=== PATIENT | male | born 1985 | race Caucasian/White ===

== ENCOUNTER 2020-11-21 18:55 | Emergency (ER) | payer BC, SELFPAY ==
[2020-11-21 19:02] VITALS: BP 134/91; PULSE 70; RESP 18; TEMP 36.8; O2SAT 99
--- NOTE | 2020-11-21 19:19 | ED.EAR ---
HPI - Ear Problem General Chief complaint: Ear Stated complaint: Rt ear pain Time Seen by Provider: 11/21/20 19:02 Source: patient and RN notes reviewed Mode of arrival: ambulatory Limitations: no limitations History of Present Illness HPI Narrative: Patient presents today complaining of right ear pain x2 days. Associated symptoms include mild cough, clear drainage. Reports the ear pain is causing a headache. Currently rates his pain 6/10 and has been taking Excedrin with mild relief. Denies any recent swimming. No recent antibiotic use. MD Complaint: ear pain Related Data Allergies Allergy/AdvReac Type Severity Reaction Status Date / Time No Known Allergies Allergy Unverified 01/06/17 13:34 Review of Systems Review of Systems: CONSTITUTIONAL: Denies body aches, fever, chills, or sweats. EYES: Denies visual changes, redness, or discharge. ENT: Denies rhinorrhea, congestion, sore throat. +right ear pain CARDIOVASCULAR: Denies chest pain, palpitations, or edema. RESPIRATORY: Denies dyspnea.+ Cough GASTROINTESTINAL: Denies abdominal pain, nausea, vomiting, or diarrhea. GENITOURINARY: Denies dysuria or hematuria. SKIN: Denies rash, itching, or wounds. MUSCULOSKELETAL: Denies back pain, joint pain, or myalgia. NEUROLOGIC: Denies headache, numbness, tingling, or weakness. PSYCH: Denies depression or anxiety. PMFSH Past Medical History Medical History Anxiety Hx of migraines Surgical History Surgical History No history of previous surgery Social History Social History Smoking status: Never smoker Additional living arrangements comments: , 17 m/o son Comments At time of signature, I have reviewed and agree with nursing past medical, surgical, social and family history unless otherwise noted. Please see nursing chart for further information. There is no relevant family history pertinent to the presenting complaint Exam Narrative: GENERAL: Well-appearing, well-nourished, and in no acute distress. HEAD: Normocephalic, atraumatic. EYES: EOMI. No redness or drainage. Conjunctivae normal. ENT: Mucous membranes pink and moist. Nares clear. No rhinorrhea. Left TM normal. Right TM erythematous and retracted. Throat normal. Uvula midline. NECK: Normal AROM. Supple. No lymphadenopathy. CHEST: No respiratory distress. Clear to auscultation. HEART: Regular rate and rhythm. No murmur appreciated. Normal peripheral pulses. EXTREMITIES: Normal range of motion. No edema. SKIN: Warm, dry, no rash. Capillary refill normal. Normal skin turgor. NEURO: No focal deficits. Alert and oriented x3. Gait steady. PSYCH: Normal affect. No signs of depression or anxiety. Course Vital Signs Vital signs: Vital Signs Temperature 98.2 F 11/21/20 19:02 Pulse Rate 70 11/21/20 19:02 Respiratory Rate 18 11/21/20 19:02 Blood Pressure 134/91 H 11/21/20 19:02 Pulse Oximetry 99 11/21/20 19:02 Temperature 98.2 F 11/21/20 19:02 Pulse Rate 70 11/21/20 19:02 Respiratory Rate 18 11/21/20 19:02 Blood Pressure 134/91 H 11/21/20 19:02 Pulse Oximetry 99 11/21/20 19:02 Reviewed. Pt has been instructed to follow up with his PCP regarding his elevated blood pressure today. Medical Decision Making Differential Diagnosis Differential Diagnosis: Otitis media, otitis externa, ruptured TM, serous otitis, eustachian tube dysfunction, URI Vital Signs Vital Signs: Vital Signs Temperature 98.2 F 11/21/20 19:02 Pulse Rate 70 11/21/20 19:02 Respiratory Rate 18 11/21/20 19:02 Blood Pressure 134/91 H 11/21/20 19:02 Pulse Oximetry 99 11/21/20 19:02 Temperature 98.2 F 11/21/20 19:02 Pulse Rate 70 11/21/20 19:02 Respiratory Rate 18 11/21/20 19:02 Blood Pressure 134/91 H 11/21/20 19:02 Pulse Oximetry
== END 2020-11-21 19:22 | disposition home or self-care (01) ==
PROVIDERS: Emergency Provider Nurse Practitioner
DX: H66.91 Otitis media, unspecified, right ear (principal)
CPT/HCPCS: 99213; G0463

== ENCOUNTER 2021-10-23 17:53 | Emergency (ER) | payer BC, SELFPAY ==
--- NOTE | ~2021-10-23 | XR_ITS ---
EXAM: XR foot RT min 3V DATE: 10/23/2021 18:26 HISTORY: inj. lat foot pain after running 5k . COMPARISON: None available. FINDINGS: Normal mineralization. No fracture or dislocation. No lytic or blastic lesion. Joint space s are maintained. No erosion or periosteal change. Soft tissues within normal limits. IMPRESSION: No acute osseous finding in the right foot. Reviewed, dictated and finalized at location K.
--- NOTE | 2021-10-23 17:57 | ED.LOWEXIN ---
HPI - Extremity Injury (Lower) General Chief Complaint: Extremity Injury, Lower Stated Complaint: rt foot pain Time Seen by Provider: 10/23/21 17:57 Source: patient Mode of arrival: ambulatory Limitations: no limitations History of Present Illness HPI Narrative: Mr. Sood is a 35-year-old male patient presenting to the clinic today with complaints of right foot x3 days. He reports he was walking in a 5 km and decided to run it with slip on shoes. Reports that he has pain to the lateral plantar foot along the fifth metatarsal. Pain is worse with stretching. Has had to use a cane today because the pain is so severe. States pain is sharp and stabbing and worse when he is ambulatory. He denies any other known injury. Related Data Allergies Allergy/AdvReac Type Severity Reaction Status Date / Time shrimp Allergy Intermediate Hives Verified 10/23/21 18:15 Review of Systems Review of Systems: Pertinent positives per HPI. Patient denies any fever, chills, rash, headache, visual changes, dizziness, cough, runny nose, sore throat, shortness of breath, chest pain, palpitations, nausea, vomiting, diarrhea, constipation, abdominal pain, or any urinary issues. PMFSH Past Medical History Medical History Anxiety Hx of migraines Hyperlipidemia Surgical History Surgical History No history of previous surgery Social History Social History Additional living arrangements comments: , 17 m/o son Comments At the time of my signature, I reviewed and agree with the nursing past medical, surgical, social, and family history. There is no relevant family history pertinent to the patient complaint. Exam Narrative: General: Well-developed, well nourished, in no apparent distress Head: Normocephalic, atraumatic. Cardio: Regular rate and rhythm, s1 and s2 normal, no murmur appreciated. Resp: Clear to auscultation bilaterally, no rhonchi, rales, wheezing or rubs. Musculoskeletal: No deformity, non-tender to palpation, grossly normal range of motion, muscle strength strong and equal, peripheral pulse strong, no edema, no cyanosis, normal gait and station Course Course Emergency Course: Portions of this record may have been created with voice recognition software. Level of Care: Express Care Visit Vital Signs Vital signs: Vital signs reviewed Procedures Other Procedure Procedure 1: Other Procedure: Verbal consent obtained for tendon sheath injection to the right lateral foot tendinitis. 20 mg of Kenalog and 0.5 mL of lidocaine were mixed. Area of discomfort was cleansed with alcohol and a 25-gauge 0.5 inch needle was used to inject medications into the subcutaneous tissue near the tendon. Patient tolerated well. Bleeding was controlled and Band-Aid was applied. Reevaluation: Patient stated pain had improved post injection. MDM - Extremity Injury (Lower) MDM Narrative Medical decision making narrative: At the time of visit patient is resting comfortably on the exam table. X-ray of the right foot was completed to rule out stress fracture. X-ray was negative for any fracture. I suspect the patient has tendinitis in the right foot over the fifth metatarsal/plantar. Kenalog 20 mg / 1% lidocaine 0.5 mL injected into tendon sheath to help alleviate pain and this improved his pain. We will give him a course of prednisone to help with the inflammation and he is to follow-up with his PCP in 3 to 5 days if symptoms persist or sooner if they worsen. Differential Diagnosis Differential diagnosis: Likely other (Right foot tendinitis, stress fracture) Discharge Plan Discharge Clinical Impression: Tendinitis of right foot Patient Disposition: Home, Self-Care Condition: Stable Additional Instructions: X-ray negative for stress fracture of
[2021-10-23 18:08] VITALS: BP 138/83; PULSE 72; RESP 17; TEMP 36.6; O2SAT 98
== END 2021-10-23 19:25 | disposition home or self-care (01) ==
PROVIDERS: Emergency Provider Nurse Practitioner Family; PCP Nurse Practitioner Family
DX: M77.8 Other enthesopathies, not elsewhere classified (principal); E78.5 Hyperlipidemia, unspecified; F41.9 Anxiety disorder, unspecified
CPT/HCPCS: 20550; 73630; 96372; 99213; G0463; J3301

== ENCOUNTER 2023-04-22 09:56 | Outpatient (CLI) | payer BC, SELFPAY ==
[2023-04-22 19:13] LABS: Alanine Aminotransferase 25 U/L (6-50); Alkaline Phosphatase 60 U/L (38-126); Anion Gap 9 mmol/L (8-16); Aspartate Amino Transferase 23 U/L (17-59); Bilirubin,Total 0.4 mg/dL (0.2-1.3); Blood Urea Nitrogen 17 mg/dL (9-20); Calcium 8.9 mg/dL (8.4-10.2); Carbon Dioxide 25 mmol/L (22-30); Chloride 107 mmol/L (98-107); Cholesterol 273 mg/dL (0-200); Estimated Glomerular Filt Rate > 60; Glucose 90 mg/dL (65-110); HDL Direct 35 mg/dL; Potassium 4.2 mmol/L (3.4-5.0); Sodium 141 mmol/L (137-145); Triglycerides 230 mg/dL (<150)
[2023-04-22 19:16] LABS: Basophils Percent Auto 0.7 % (0.2-1.2); Eosinophils Absolute Auto 0.2 K/mm3 (0-0.3); Hematocrit 41.9 % (42.0-52.0); Hemoglobin 13.5 g/dL (14.0-18.0); Immature Granulocyte Absolute 0.11 K/mm3 (0.00-0.031); Immature Granulocyte Percent A 1.8 % (0-0.5); Lymphocytes Absolute Auto 1.41 K/mm3 (0.9-3.2); Lymphocytes Percent Auto 23.2 % (18.3-44.2); Mean Corpuscular HGB Conc 32.2 g/dl (32-36); Mean Corpuscular Hemoglobin 30.1 pg (26-34); Mean Corpuscular Volume 93.3 fl (80-100); Mean Platelet Volume 10.7 fl (7.4-10.4); Monocytes Absolute Auto 0.4 K/mm3 (0.1-0.6); Monocytes Percent Auto 7.1 % (2.6-8.5); Neutrophils Absolute Auto 3.9 K/mm3 (1.3-6.7); Neutrophils Percent Auto 64.2 % (45.5-73.1); Platelet Count Result 225 k/mm3 (150-375); Red Blood Count 4.49 M/mm3 (4.6-6.20); Red Cell Distribution Width 12.4 % (11.5-14.5); White Blood Count 6.1 K/mm3 (4.5-10.0)
[2023-04-22 19:23] LABS: LDL Cholesterol Direct 185 mg/dL
[2023-04-22 19:43] LABS: Thyroid Stimulating Hormone 0.825 uIU/mL (0.465-4.680)
== END 2023-04-22 09:57 | disposition home or self-care (01) ==
LOC: ANHGOSHLAB 09:57
PROVIDERS: PCP Nurse Practitioner Family; Visit Provider Nurse Practitioner Family
DX: E78.5 Hyperlipidemia, unspecified (principal); R63.5 Abnormal weight gain; R07.9 Chest pain, unspecified
CPT/HCPCS: 36415; 80053; 80061; 84443; 85025

== ENCOUNTER 2023-09-16 08:14 | Emergency (ER) | payer BC, SELFPAY ==
[2023-09-16 08:20] VITALS: BP 147/83; PULSE 82; RESP 18; TEMP 36.5; O2SAT 96
--- NOTE | 2023-09-16 08:31 | ED.EYEPROB ---
HPI - Eye Problem General Chief complaint: Eye Problems Stated complaint: Left Eye Pain Time Seen by Provider: 09/16/23 08:25 Source: patient and RN notes reviewed Mode of arrival: ambulatory Limitations: no limitations History of Present Illness HPI Narrative: Since today complaining of redness and pain to the left eye that started last night. Denies any injury or trauma. No photophobia. Patient does not want open his eye due to increased pain. Denies foreign body sensation. Currently rates his pain 8/10 and describes it as sharp and knife-like. He has tried cold compresses, [id number] drops, Tylenol, and ibuprofen without relief. Denies vision changes. States he has very poor vision and did not wear his glasses today. Related Data Home Medications Medication Instructions Recorded Confirmed clonazepam 1 mg tablet 1 mg PO TID 06/24/22 04/22/23 fluoxetine 40 mg capsule 40 mg PO DAILY 10/13/22 04/22/23 duloxetine 30 mg capsule,delayed 30 mg PO DAILY 02/27/23 04/22/23 release duloxetine 60 mg capsule,delayed 60 mg PO DAILY 02/27/23 04/22/23 release sprinkle Allergies Allergy/AdvReac Type Severity Reaction Status Date / Time shrimp Allergy Intermediate Hives Verified 04/22/23 09:41 Review of Systems Review of Systems: CONSTITUTIONAL: Denies body aches, fever, chills, or sweats. EYES: Denies visual changes, redness, or discharge.+ left eye pain and redness ENT: Denies rhinorrhea, congestion, sore throat, or otalgia. CARDIOVASCULAR: Denies chest pain, palpitations, or edema. RESPIRATORY: Denies cough or dyspnea. GASTROINTESTINAL: Denies abdominal pain, nausea, vomiting, or diarrhea. GENITOURINARY: Denies dysuria or hematuria. SKIN: Denies rash, itching, or wounds. MUSCULOSKELETAL: Denies back pain, joint pain, or myalgia. NEUROLOGIC: Denies headache, numbness, tingling, or weakness. PSYCH: Denies depression or anxiety. [facility] Past Medical History Medical History Anxiety Hx of migraines Hyperlipidemia Surgical History Surgical History No history of previous surgery Family History Family History Father Family history of gout Family history of glaucoma Family history of arthritis Family history of color blindness Other Malignant neoplasm of prostate Social History Social History Smoking status: Unknown if ever smoked Alcohol intake: never Substance use: never Substance use type: does not use Do You Feel Safe in your Home?: Yes Lack of Transportation: No Lack of Food: Never True Concerned About Future Housing: No Difficulty Paying Gas/Electric Bills: No Difficulty Paying for Meds: No Currently Unemployed: No Education: Bachelor's Degree Difficulty w/ Childcare or Family Care: No Living arrangements: with family Additional living arrangements comments: with children Occupation/Education: occupation Gender identity (if verbalized by the patient): Male Agree to blood products: Yes Comments At time of signature, I have reviewed and agree with nursing past medical, surgical, social and family history unless otherwise noted. Please see nursing chart for further information. There is no relevant family history pertinent to the presenting complaint Exam Narrative: GENERAL: Well-appearing, well-nourished, and in mild pain distress. HEAD: Normocephalic, atraumatic. EYES: EOMI. PERRL. Right eye normal. Left eye: Moderately injected conjunctiva with tearing. Mildly swollen eyelids. Fluorescein uptake. See procedure note. ENT: Mucous membranes pink and moist. NECK: Normal AROM. CHEST: No respiratory distress. EXTREMITIES: Normal range of motion. No edema. SKIN: Warm, dry, no rash. Capillary re
== END 2023-09-16 08:53 | disposition home or self-care (01) ==
PROVIDERS: Emergency Provider Nurse Practitioner; PCP Nurse Practitioner Family
DX: S05.02XA Injury of conjunctiva and corneal abrasion without foreign body, left eye, initial encounter (principal); X58.XXXA Exposure to other specified factors, initial encounter; F41.9 Anxiety disorder, unspecified; E78.5 Hyperlipidemia, unspecified
CPT/HCPCS: 99213; A9270; G0463